=== PATIENT | female | born 1980 | race Caucasian/White ===

== ENCOUNTER 2024-07-30 17:36 | Inpatient (IN) | payer MEDICAID, SELFPAY ==
[2024-07-30 17:36] VITALS: BP 141/67; PULSE 111; RESP 20; TEMP 37.3; O2SAT 97; BMI 25.6
--- NOTE | 2024-07-30 18:16 | ED.C_ITS ---
HPI - Psych 2 General: Chief Complaint: Psychiatric Symptoms Stated Complaint: SI Time Seen by Provider: 07/30/24 17:44 History of Present Illness: 43-year-old female presents to the emerg ency department chief complaint of having suicidal thoughts and ideations patient reports she used a knife to cut her left wrist with the intent of ending her life patient has a known history of mental health issues patient reports to be off her medications for quite some time reports she is homeless reports she had to drink a little bit of fireball alcohol earlier today denies any other drug use patient presents to the ER for further assessment and management. Associated symptoms: Reports depression and suicidal ideation Related Data Allergies Allergy/AdvReac Type Severity Reaction Status Date / Time ketorolac [From Toradol] Allergy ALGY-Anaphy Verified 07/30/24 19:05 laxis prednisone Allergy Unknown Verified 07/30/24 19:06 Review of Systems 2 General: Reports: 10 or more systems reviewed and unremarkable except in HPI and below Const: Denies: fever(s), chills, fatigue or malaise Eyes: Denies: change in vision or blurry vision Card: Denies: chest pain or palpitations Resp: Denies: dyspnea or productive cough GI: Denies: abdominal pain, nausea or vomiting : Denies: flank pain Musc: Denies: extremity pain or extremity swelling Skin/Breast: Denies: rash or pruritus Neuro: Denies: headache(s) Psych: Reports: depression, hopelessness, loss of interest and suicidal ideation; Denies: anxiety Wily/Lymph: Denies: easy bleeding All/Imm: Denies: urticaria, throat swelling or facial swelling Physical Exam 2 Const: COMMON NORMALS: no acute distress, patient oriented x3 and healthy appearing HENMT: COMMON NORMALS: normocephalic and atraumatic HEAD & SCALP: n ormocephalic and atraumatic Eye: COMMON NORMALS: Equal, round and reactive pupils present and EOMs intact bilaterally PUPIL: Yes Equal, round and reactive pupils present Neck/C-Spine: COMMON NORMALS: full ROM, supple and no JVD Lymph: LYMPHATIC: no lymphadenopathy noted Chest: COMMONS NORMALS: normal inspection of the chest and normal palpation of entire chest wall Resp: COMMON NORMALS: normal respiratory effort, No retractions and clear to auscultation bilaterally EFFORT & INSPECTION: Yes able to speak in complete sentences and Yes symmetric chest movement AUSCULTATION: clear to auscultation bilaterally Cardio: COMMON NORMALS: no JVD, regular rate and regular rhythm RATE: r egular rate RHYTHM: regular rhythm GI: COMMON NORMALS: Normal to inspection, nondistended, normoactive bowel sounds present, Soft to palpation and non-tender INSPECTION: Yes normal to inspection PALPATION: Yes Soft to palpation : COMMON NORMALS: Yes no CVA tenderness BLADDER/KIDNEY EXAM: Yes no CVA tenderness Back/Pelvis: COMMON NORMALS: no CVA tenderness Extremity: COMMON NORMALS: normal to inspection and full ROM Neuro: COMMON NORMALS: patient oriented x3, CN's II-XII intact bilaterally, moves all extremities and no focal motor deficits Psych: COMMON NORMALS: mental status grossly normal, Normal thought process present, cooperative and normal affect THOUGHT PROCESS: Normal thought process present OTHER: Upon direct questioning patient reports suicidal thoughts and ideations with plan Skin: COMMON NORMALS: no rashes or lesions noted GENERAL SKIN EXAM: no rashes or lesions noted Course 2 Vital Signs: Vital signs: Vital Signs Temperature 99.2 F 07/30/24 17:36 Pulse Rate 101 H 07/30/24 19:07 Respiratory Rate 18 07/30/24 19:07 Blood Pressure 149/94 07/30/24 19:07 Pulse Oximetry 97 07/30/24 19:07 Oxygen Delivery Me thod Room Air 07/30/24 19:07 MDM - Psych Medical Decision Making Due to patient's symptoms and condition will be to medical clearance for inpatient psychiatric assessment will be obtained patient has been found medically cleared she was found positive for opiates benzos and THC patient also was found to have a urinary tract infection as well as a dose of Rocephin for discussed patient case with Dr. Seo psychiatrist has granted acceptance to the NPU. Lab Data 07/30/24 18:20 07/30/24 18:20 Laboratory Results WBC 6.09 10^3/uL (3.29-11.43) 07/30/24 18:20 RBC 3.82 10^6/uL (3.85-5.65) L 07/30/24 18:20 Hgb 10.00 g/dL (11.27-16.99) L 07/30/24 18:20 Hct 32.7 % (36-47) L 07/30/24 18:20 MCV 85.6 fl (85-98) 07/30/24 18:20 MCH 26.2 pg (27-33) L 07/30/24 18:20 MCHC 30.6 g/dL (30-55) 07/30/24 18:20 RDW 20.4 % (12.1-15.1) H 07/30/24 18:20 Plt Count 446 10^3/cmm (157-399) H 07/30/24 18:20 MPV 8.9 fL (7.4-10.4) 07/30/24 18:20 Neut % (Auto) 63.5 % 07/30/24 18:20 Lymph % (Auto) 25.8 % 07/30/24 18:20 [place] % (Auto) 6.4 % 07/30/24 18:20 Eos % (Auto) 2.8 % 07/30/24 18:20 Baso % (Auto) 1.3 % 07/30/24 18:20 Neut # (Auto) 3.87 10^3/uL (1.8-7.7) 07/30/24 18:20 Lymph # (Auto) 1.6 10^3/uL (0.8-4.8) 07/30/24 18:20 [place] # (Auto) 0.4 10^3/uL (0.2-0.9) 07/30/24 18:20 Eos # (Auto) 0.2 10^3/uL (0.0-0.8) 07/30/24 18:20 Baso # (Auto) 0.1 10^3/uL (0.0-0.1) 07/30/24 18:20 Nucleated RBC % (auto) 0 % 07/30/24 18:20 Nucleated RBCs # 0.0 /100WBC 07/30/24 18:20 Sodium 139 mmol/L (136-145) 07/30/24 18:20 Potassium 3.7 mmol/L (3.5-5.1) 07/30/24 18:20 Chloride 103 mmol/L (98-107) 07/30/24 18:20 Carbon Dioxide 20 mmol/L (22-29) L 07/30/24 18:20 Anion Gap 19.7 (5-19) H 07/30/24 18:20 BUN 13 mg/dL (6-20) 07/30/24 18:20 Creatinine 0.6 mg/dL (0.5-0.9) 07/30/24 18:20 GFR Calculation 109.1 mL/min (90-130) 07/30/24 18:20 Glucose 101 mg/dL (65-115) 07/30/24 18:20 Calculated Osmolality 288 mOsm/kg (285-295) 07/30/24 18:20 Calcium 9.1 mg/dL (8.5-10.5) 07/30/24 18:20 Total Bilirubin 0.2 mg/dL (0.15-1.2) 07/30/24 18:20 AST 13 U/L (0-32) 07/30/24 18:20 ALT 17 U/L (0-33) 07/30/24 18:20 Alkaline Phosphatase 155 U/L (35-105) H 07/30/24 18:20 Total Protein 7.0 g/dL (6.6-8.7) 07/30/24 18:20 Albumin 4.3 g/dL (3.5-5.2) 07/30/24 18:20 Globulin 2.7 g/dL (1.3-4.6) 07/30/24 18:20 TSH 0.61 uIU/mL (0.27-4.20) 07/30/24 18:20 Urine Color Yellow (Yellow) 07/30/24 18:42 Urine Appearance Cloudy (CLEAR) A 07/30/24 18:42 Urine pH 5.0 (5-7) 07/30/24 18:42 Ur Specific [place] 1.030 (1.005-1.030) 07/30/24 18:42 Urine Protein Negative (Negative) 07/30/24 18:42 Urine Glucose (UA) Negative (Normal) 07/30/24 18:42 Urine Ketones Trace (Negative) 07/30/24 18:42 Urine Blood Negative (Negative) 07/30/24 18:42 Urine Nitrate Negative (Negative) 07/30/24 18:42 Urine Bilirubin Negative (Negative) 07/30/24 18:42 Urine Urobilinogen 1.0 mg/dL (Negative) 07/30/24 18:42 Ur Leukocyte Esterase Trace (Negative) A 07/30/24 18:42 Urine RBC 0-2 /hpf (0-2) 07/30/24 18:42 Urine WBC 21-50 /hpf (0-5) H 07/30/24 18:42 Ur Squamous Epith Cells 21-50 /hpf (0-5) 07/30/24 18:42 Amorphous Sediment Not Reportable 07/30/24 18:42 Urine Bacteria 3+ /hpf (NONE) H 07/30/24 18:42 Hyaline Casts 2.46 /lpf 07/30/24 18:42 Salicylates < 0.3 mg/dL (3-10) L 07/30/24 18:20 Urine Opiates Screen Positive ng/mL (Negative) H 07/30/24 18:42 Acetaminophen < 5.0 ug/mL (10-30) L 07/30/24 18:20 Ur Barbiturates Screen Negative ng/mL (Negative) 07/30/24 18:42 Ur Phencyclidine Scrn Negative ng/mL (Negative) 07/30/24 18:42 Ur Amphetamines Screen Negative ng/mL (Negative) 07/30/24 18:42 U Benzodiazepines Scrn Positive ng/mL (Negative) H 07/30/24 18:42 Urine Cocaine Screen Negative ng/mL (Negative) 07/30/24 18:42 U Marijuana (THC) Screen Positive ng/mL (Negative) H 07/30/24 18:42 Coronavirus 229E (PCR) Not detected (NOT DETECT) 07/30/24 19:10 SARS-CoV-2 (PCR) Not detected (NOT DETECT) 07/30/24 19:10 No radiology studies performed this visit Discharge Plan Discharge Patient Disposition: Admitted As Inpatient Admit Provider: Raphael Seo Clinical Impression: Suicidal ideation Condition: Stable Coding Level of Care Code ED Gear Milling Machine Set Up Operator for Robin Terry
--- NOTE | 2024-07-30 18:16 | ECG_ITS ---
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: : 1980 Requested By: Escobar Wilson Order Number: [id number] Reading MD: KIMO CASTRO Measurements Intervals [place] Rate: 99 P: 68 MO: 139 QRS: 35 QRSD: 77 T: 52 QT: 336 QTc: 433 Interpretive Statements SINUS RHYTHM LOW QRS VOLTAGE IN PRECORDIAL LEADS [QRS DEFLECTION < 1.0 mV IN CHEST LEADS] MINIMAL ST DEPRESSION [0.025+ mV ST DEPRESSION] No previous ECG available for comparison Electronically Signed On 07-31-2024 00:07:20 CDT by KIMO CASTRO [id number]
[2024-07-30 18:24] LABS: Basophils # 0.1 10^3/uL (0.0-0.1); Basophils % 1.3 %; Eosinophils # 0.2 10^3/uL (0.0-0.8); Eosinophils % 2.8 %; Hematocrit 32.7 % (36-47); Lymphocytes # 1.6 10^3/uL (0.8-4.8); Lymphocytes % 25.8 %; Mean Corpuscular HGB Conc 30.6 g/dL (30-55); Mean Corpuscular Hemoglobin 26.2 pg (27-33); Mean Corpuscular Volume 85.6 fl (85-98); Mean Platelet Volume 8.9 fL (7.4-10.4); Monocytes # 0.4 10^3/uL (0.2-0.9); Monocytes % 6.4 %; Neutrophils # 3.87 10^3/uL (1.8-7.7); Neutrophils % 63.5 %; Nucleated Red Blood Cells % 0 %; Platelet Count 446 10^3/cmm (157-399); Red Blood Count 3.82 10^6/uL (3.85-5.65); Red Cell Distribution Width 20.4 % (12.1-15.1); White Blood Count 6.09 10^3/uL (3.29-11.43)
[2024-07-30 18:49] LABS: Bilirubin Urine Negative (Negative); Blood Urine Negative (Negative); Glucose Urine UA Negative (Normal); Ketones Urine Trace (Negative); Leukocyte Esterase Urine Trace (Negative); Nitrate Urine Negative (Negative); Protein Urine Negative (Negative); Urine Appearance Cloudy (CLEAR); Urine Color Yellow (Yellow)
[2024-07-30 18:52] LABS: Add Urine Microscopic? YES; Bacteria Urine 3+ /hpf; Hyaline Casts Urine 2.46 /lpf; RBC Urine 0-2 /hpf (0-2); Squamous Epithelial Cell Urine 21-50 /hpf (0-5); WBC Urine 21-50 /hpf (0-5)
[2024-07-30 18:53] LABS: Acetaminophen < 5.0 ug/mL (10-30); Alanine Aminotransferase 17 U/L (0-33); Albumin Level 4.3 g/dL (3.5-5.2); Alkaline Phosphatase 155 U/L (35-105); Anion Gap 19.7 (5-19); Aspartate Amino Transferase 13 U/L (0-32); Blood Urea Nitrogen 13 mg/dL (6-20); Calcium 9.1 mg/dL (8.5-10.5); Carbon Dioxide 20 mmol/L (22-29); Chloride 103 mmol/L (98-107); Creatinine Clr Calc Pharmacy 105.8513; Globulin 2.7 g/dL (1.3-4.6); Glomerular Filtration Rate 109.1 mL/min (90-130); Glucose 101 mg/dL (65-115); Osmolality Calculated 288 mOsm/kg (285-295); Potassium 3.7 mmol/L (3.5-5.1); Salicylate < 0.3 mg/dL (3-10); Sodium 139 mmol/L (136-145); Thyroid Stimulating Hormone 0.61 uIU/mL (0.27-4.20); Total Bilirubin 0.2 mg/dL (0.15-1.2)
[2024-07-30 18:57] LABS: Amphetamines Screen Urine Negative (Negative); Barbiturates Screen Urine Negative (Negative); Benzodiazepines Screen Urine Positive (Negative); Cocaine Screen Urine Negative (Negative); Opiate Screen Urine Positive (Negative); PCP Screen Urine Negative (Negative); THC Screen Urine Positive (Negative)
[2024-07-30] MEDS: sodium chloride 0.9% 1,000 ML 999 ML IV (18:59)
[2024-07-30 19:07] VITALS: BP 149/94; PULSE 101; RESP 18; O2SAT 97
[2024-07-30] MEDS: acetaminophen 325 mg Tablet 650 MG PO (19:40)
[2024-07-30] MEDS: cefTRIAXone 1,000 mg SDV 1000 MG IVP (20:21)
[2024-07-30 21:06] LABS: Adenovirus Not Detected (NOT DETECT); Chlamydia Pneumoniae Not Detected (NOT DETECT); Coronavirus 229E,HKU1,NL63,OC4 Not Detected (NOT DETECT); Human Metapneumovirus Not Detected (NOT DETECT); Human Rhinovirus/Enterovirus Not Detected (NOT DETECT); Influenza A Not Detected (NOT DETECT); Influenza A H1 Not Detected (NOT DETECT); Influenza A H1-2009 Not Detected (NOT DETECT); Influenza A H3 Not Detected (NOT DETECT); Influenza B Not Detected (NOT DETECT); Mycoplasma Pneumoniae Not Detected (NOT DETECT); Parainfluenza Virus Type 1 Not Detected (NOT DETECT); Parainfluenza Virus Type 2 Not Detected (NOT DETECT); Parainfluenza Virus Type 3 Not Detected (NOT DETECT); Parainfluenza Virus Type 4 Not Detected (NOT DETECT); Respiratory Syncytial Virus A Not Detected (NOT DETECT); Respiratory Syncytial Virus B Not Detected (NOT DETECT); SARS-COV-2 Not Detected (NOT DETECT)
--- NOTE | 2024-07-30 21:20 | PC.NURSE ---
96 Hour Involuntary Hold Patient Rights have been read to the patient and a copy of the same has been given to her. Electronic Equipment Set Up Operator Maxim Recio was present at bedside at the time of presentation of Rights.
[2024-07-30 22:00] VITALS: BP 115/71; PULSE 92; RESP 18; TEMP 36.9; O2SAT 98
[2024-07-30 22:05] LABS: Alcohol Level < 10 mg/dL (0-10)
[2024-07-30 22:23] VITALS: BP 105/69; PULSE 96; O2SAT 95
[2024-07-30 22:40] VITALS: BP 105/69; PULSE 96; O2SAT 95
[2024-07-31] MEDS: ondansetron 4 MG Tablet PO (03:41)
[2024-07-31] MEDS: acetaminophen 325 mg Tablet 650 MG PO ×2 (03:42→17:00)
[2024-07-31] MEDS: hyDROXYzine 25 mg Capsule 50 MG PO ×2 (04:06→20:46)
[2024-07-31 05:49] VITALS: BP 105/61; PULSE 68; RESP 16; TEMP 36.6; O2SAT 98
[2024-07-31] MEDS: folic acid 1 mg Tablet PO (08:11)
[2024-07-31] MEDS: pantoprazole DR 40 mg Tablet PO (08:11)
[2024-07-31] MEDS: nicotine 21 mg Patch 1 PATCH TRANSDERMA (08:30)
[2024-07-31] MEDS: OLANZapine 5 mg ODT PO (08:41)
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
[2024-07-31] MEDS: neomycin-poly-bacitracin oint 28 gm 1 APPLIC TOPICAL (11:13)
--- NOTE | 2024-07-31 12:06 | PC.NURSE ---
PT CURRENTLY DENIES SI/HI/AH/VH. PT CURRENTLY ENDORSES DEPRESSION AND ANXIETY. PT WAS GIVEN PRN MEDICATIONS FOR ANXIETY. PT IS TEARFUL AND IS SOMATIC. PT STATES THESE MEDICATIONS DO NOT WORK, I NEED KLONOPIN. PT CURRENT NEEDS ARE MET AT THIS TIME.
[2024-07-31 14:00] VITALS: BP 131/88; PULSE 83; RESP 16; TEMP 36.7; O2SAT 100
[2024-07-31] MEDS: polyethylene glycol 3350 Pkt 17 gm PO (14:05)
[2024-07-31] MEDS: trazodone 50 mg Tablet PO (20:46)
[2024-07-31 21:33] VITALS: BP 130/86; PULSE 80; RESP 18; TEMP 36.6; O2SAT 98
[2024-07-31] MEDS: gabapentin 300 mg Capsule PO (21:47)
[2024-07-31] MEDS: propranolol 20 mg Tablet PO (21:47)
[2024-08-01 06:00] VITALS: BP 103/68; PULSE 79; RESP 16; O2SAT 96
[2024-08-01] MEDS: polyethylene glycol 3350 Pkt 17 gm PO (08:26)
[2024-08-01] MEDS: propranolol 20 mg Tablet PO ×2 (08:26→14:47)
[2024-08-01] MEDS: gabapentin 300 mg Capsule PO ×2 (08:26→18:04)
[2024-08-01] MEDS: folic acid 1 mg Tablet PO (08:26)
[2024-08-01] MEDS: pantoprazole DR 40 mg Tablet PO (08:26)
[2024-08-01] MEDS: nicotine 21 mg Patch 1 PATCH TRANSDERMA (08:27)
[2024-08-01 08:33] VITALS: BP 112/81; PULSE 74; TEMP 37.1; O2SAT 100
[2024-08-01] MEDS: acetaminophen 325 mg Tablet 650 MG PO (11:13)
[2024-08-01] MEDS: hyDROXYzine 25 mg Capsule 50 MG PO (12:15)
[2024-08-01 13:55] VITALS: BP 125/81; PULSE 78; RESP 20; TEMP 36.6; O2SAT 98
[2024-08-01] MEDS: magnesium citrate Btl 296 mL PO (14:11)
[2024-08-01 14:48] VITALS: BP 124/80
[2024-08-01] MEDS: glycerin adult supp 1 EACH PR (16:50)
--- NOTE | 2024-08-01 17:18 | PC.NURSE ---
Addendum entered by Vandana Santiago RN 08/01/24 18:00: PT CAME TO THIS NURSE AFTER SUPPER AND STATED GIRL, WE DO NOT HAVE TO DO THAT. I BLEW THAT SHIT UP. THIS NURSE CONFIRMED THAT SHE HAD A BOWEL MOVEMENT AND PT CONFIRMED THAT. PHYSICIAN NOTIFIED AND ENEMA ORDER CANCELED. Original Note: PT HAS CONTINUED TO STRUGGLE TO HAVE A BOWEL MOVEMENT. PT WAS NOT ABLE TO HOLD DOWN THE MAGNESIUM CITRATE ORDERED BY PHYSICIAN. PHYSICIAN ORDERED GLYCERIN SUPPOSITORY. THIS NURSE ADMINISTERED THIS SUPPOSITORY AND INSTRUCTED PT TO HOLD THE SUPPOSITORY IN UNTIL SHE FELT LIKE SHE NEEDED TO GO. PT CAME TO THIS NURSE AND STATED THAT SHE ATTEMPTED TO HAVE A BM AND ONLY EXCRETED THE SUPPOSITORY. THIS NURSE INFORMED PHYSICIAN OF EVENTS AND PHYSICIAN ORDERED A SOAP SUDS ENEMA TO BE ADMINISTER. ORDERS HAVE BEEN PLACED AND PT HAS BEEN INFORMED OF THE PROCESS AND PROCEDURE THAT IS PLANNED AND HAS REQUESTED IT BE AFTER SHE EATS SUPPER.
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
[2024-08-01 22:00] VITALS: BP 114/77; PULSE 77; RESP 18; TEMP 36.9; O2SAT 100
[2024-08-01] MEDS: trazodone 50 mg Tablet PO (23:05)
[2024-08-02 06:00] VITALS: BP 98/59; PULSE 76; RESP 17; TEMP 36.8; O2SAT 97
[2024-08-02] MEDS: acetaminophen 325 mg Tablet 650 MG PO (06:12)
[2024-08-02] MEDS: hyDROXYzine 25 mg Capsule 50 MG PO (08:27)
[2024-08-02] MEDS: nicotine 21 mg Patch 1 PATCH TRANSDERMA (08:27)
[2024-08-02] MEDS: gabapentin 300 mg Capsule 600 MG PO ×2 (08:27→15:29)
[2024-08-02] MEDS: pantoprazole DR 40 mg Tablet PO (08:27)
[2024-08-02] MEDS: folic acid 1 mg Tablet PO (08:27)
[2024-08-02 13:39] VITALS: BP 108/74; PULSE 102; RESP 17; TEMP 36.6; O2SAT 98
[2024-08-02] MEDS: OLANZapine 5 mg ODT PO (14:00)
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
[2024-08-02 15:16] VITALS: BP 108/74; PULSE 102; RESP 17; TEMP 36.6; O2SAT 98
== END 2024-08-02 16:08 | disposition home or self-care (01) | DRG 885 ==
LOC: ER 20:52 → NP 20:53
PROVIDERS: Admitting Provider Psychiatry & Neurology Psychiatry; Emergency Provider Emergency Medicine; Visit Provider Psychiatry & Neurology Psychiatry
DX: F33.9 Major depressive disorder, recurrent, unspecified (principal); R45.851 Suicidal ideations; F17.210 Nicotine dependence, cigarettes, uncomplicated; F41.9 Anxiety disorder, unspecified; F15.21 Other stimulant dependence, in remission; Z62.810 Personal history of physical and sexual abuse in childhood; Z91.52 Personal history of nonsuicidal self-harm; Z56.0 Unemployment, unspecified; Z59.9 Problem related to housing and economic circumstances, unspecified
CPT/HCPCS: 36415; 80053; 80306; 80307; 81001; 84443; 85025; 87635; 93005; 96361; 96374; 97150; 97165; 99285; J0696; J7030; Q0162